=== PATIENT | male | born 1955 | race Caucasian/White ===

== ENCOUNTER → 2019-09-16 05:33 | Day surgery (SDC) | payer MEDICAID, MEDICARE, OTHER ==
[~2019-09-16 05:33] MED LIST: Buffered Lidocaine 1% SYRIN* 1 ML/SYRINGE INTRADERM ONE; Dexamethasone IV* 4 MG/ML 1 ML (4 MG) ONE; Famotidine IV* 10 MG/ML 2 ML (20 mg) IV ONE; Famotidine IV* 10 MG/ML 2 ML (20 mg) ONE; Lactated Ringers 1000 ML Bag* 1,000 ML IV SCH; Lidocaine 1% INJ* 10 MG/ML 30 ML SDV ONE; Magnesium Hydroxide LIQ* 30 ML UDC PO ONE; Metoclopramide IV* 5 MG/ML 2 ML VIAL ONE; Metoclopramide TAB* 10 MG PO ONE; Midazolam* 1 MG/ML 5 ML VIAL (5 MG) ONE; Ondansetron INJ* 2 MG/ML VIAL ONE; Phenylephrine 10 MG/ML VIAL* 1 ML VIAL ONE; Succinylcholine* 20 MG/ML 10 ML VIAL ONE; fentaNYL* 50 MCG/ML 2 ML VIAL (100 MCG VIAL) ONE
[2019-09-16 06:27] VITALS: BP 139/71
--- NOTE | 2019-09-16 20:24 | PN ---
Progress Note - Progress Note Date of Service: 09/16/19 - Anesthesia Note Note: A follow up phone call to Jameson was made and he states his symptoms have improved. He denies any cardiac or respiratory symptoms. He states he did not attempt to call PMD for further evaluation and states he will do this on Thursday. Patient encouraged to do so and if new or worsening symptoms he is to go to ED for evaluation. Dr. Fraser
== END | disposition home or self-care (01) ==
LOC: OR 05:33
PROVIDERS: ATTEND Neurological Surgery
DX: M47.892 Other spondylosis, cervical region (principal); Z53.09 Procedure and treatment not carried out because of other contraindication; M54.2 Cervicalgia; R06.02 Shortness of breath; R61 Generalized hyperhidrosis; R10.13 Epigastric pain; I45.10 Unspecified right bundle-branch block; I25.10 Atherosclerotic heart disease of native coronary artery without angina pectoris; Z95.5 Presence of coronary angioplasty implant and graft; I10 Essential (primary) hypertension; E78.5 Hyperlipidemia, unspecified; K21.9 Gastro-esophageal reflux disease without esophagitis; E11.9 Type 2 diabetes mellitus without complications; Z79.01 Long term (current) use of anticoagulants
CPT/HCPCS: A9270-GY; J0330; J1100; J2250; J2405; J2765; J3010